=== PATIENT | male | born 1935 | race Caucasian/White ===

== ENCOUNTER → 2020-02-19 | Outpatient (CLI) | payer MEDICARE ==
[~2020-02-19] MED LIST: ARTHRITIS PAIN650 M4 PO; ASPIRIN325 M2 PO; LOSARTAN-HCTZ1 EAC3 PO; TRAMADOL100 MG PO; Z METOPROLOL HCT PO; Z.0.AMLODIPINE BESYL PO; Z.0.CALCIUM 500+VI1 PO; Z.0.CYMBALTA60 MG PO; Z.0.METOPROLOL TAR10 PO; Z.0.NAPROXEN500 M1 PO; Z.0.OMEPRAZOLE20 MG PO; Z.0.PRAVASTATIN SOD4 PO; Z.0.TAMSULOSIN HCL0. PO; Z.0.TERAZOSIN HCL5 M PO; Z.0.TYLENOL PM EX-1 PO; Z.0.ZOLPIDEM TARTRA1 PO; Z.2.CALCIUM 600 +1 E PO; [UNRECOGNIZED DRUG - OTHER] PO
--- NOTE | 2020-02-22 19:33 | Diagnostic Imaging Report ---
Bone Scan, delayed phase INDICATION: History of prostate cancer. 84 M with prostate cancer diagnosed in 1995. Now complains of lower back and leg pains. COMPARISON: Prior bone scan 04/06/2015 REPORT: Approximately 3 hours following intravenous administration of 27.5 mCi of Tc-99m MDP, delayed total body images in the anterior and posterior projections and selected spot images were obtained. Marked scoliosis of the thoracolumbar spine with diffuse degenerative changes including at the cervicothoracic junction, mid to lower thoracic spine and lower lumbar spine. Mildly increased tracer is seen in the right SI joint but is contiguous with degenerative changes seen in L5/S1. Degenerative changes are noted in the sternoclavicular junction, shoulders and knees. Otherwise, distribution of tracer activity is unremarkable throughout the skeletal system. No abnormal accumulation of tracer is seen in the soft tissues or urinary tract. IMPRESSION: No scan pattern of metastatic bone disease. No suspicious lesions to suggest metastasis. No interval change compared to prior bone scan in 2014. Extensive degenerative changes. Signed by: Dr. Nano Esquivel M.D. on 02/22/2020 7:29 PM
== END ==
LOC: NM 08:39
PROVIDERS: ATTEND Internal Medicine
DX: R97.20 Elevated prostate specific antigen [PSA] (principal); Z85.46 Personal history of malignant neoplasm of prostate
CPT/HCPCS: 78306; A9503